=== PATIENT | male | born 2000 | race Hispanic/Latino ===

== ENCOUNTER 2020-08-27 13:45 | Inpatient (IN) | payer OTHER, SELFPAY ==
[2020-08-27] VITALS (26 sets, daily range): BP systolic 110–133; BP diastolic 56–96; PULSE 98–160; RESP 16–35; TEMP 36.6–37.1; O2SAT 98–100
--- NOTE | ~2020-08-27 | CT_ITS ---
EXAMINATION: CT brain wo con EXAM DATE: 08/27/2020 15:00 INDICATION: Seizures. Altered mental status. Metastatic mass. TECHNIQUE: Spiral CT of the head was performed without contrast. Axial, coronal and sagittal images were reviewed. The dose-length product (DLP) for this examination was 605.33 mGy-cm. The exposure w as tailored according to patient size, and iterative reconstruction (ASIR) was used as additional dos e reduction technique. There is no prior study for comparison. FINDINGS: There is no acute intraparenchymal hemorrhage. No evidence of intraparenchymal brain mass lesion. No evidence of acute infarction. There is no mass effect or midline shift. The ventricles are normal in size. There are no extra-axial collections. There are no acute calvarial fractures. T he orbits are unremarkable. Soft tissue is unremarkable. The visualized sinuses and mastoid air deja ls are well aerated. IMPRESSION: 1. Unremarkable head CT examination. Reviewed, dictated and finalized at location A. GAGE FUNDER
--- NOTE | ~2020-08-27 | XR_ITS ---
XR chest 1V portable DATE: 08/27/2020 14:36 INDICATION: Altered mental state TECHNIQUE: Portable supine AP chest COMPARISON: None FINDINGS: Normal heart size. No hilar or mediastinal enlargement. No pulmonary infiltrate or consol idation, pulmonary vascular congestion or pleural effusion or pneumothorax. IMPRESSION: No active cardiopulmonary disease Reviewed, dictated and finalized at location B. RAFT PART ASSEMBLER
--- NOTE | 2020-08-27 13:57 | ED.OVERDOSE ---
HPI - Overdose General Chief Complaint: Seizure Stated Complaint: altered History of Present Illness HPI Narrative: 19 yo male brought in from home for AMS. Found minimally responsive with right gaze deviation and nastagmus this afternoon. Last seen normal last night. Drinking alcohol at that time. He was upset about a recent break-up with his girlfriend. EMS did not note any pills or pill bottles. They did notice that his tongue was pink. History limited by medical condition. Related Data Home Medications Medication Instructions Recorded Confirmed No Home Medications 08/27/20 08/27/20 Allergies Allergy/AdvReac Type Severity Reaction Status Date / Time No Known Allergies Allergy Verified 08/27/20 14:54 Review of Systems Review of Systems: ROS unobtainable: Yes unobtainable due to mental status PMFSH Past Medical History Medical History (Updated 08/28/20 @ 12:36 by Ale Garcia MD) Medical history unknown Surgical History Surgical History (Updated 08/27/20 @ 19:33 by Anabel Garcia NP) Surgical history unknown Family History Family History (Updated 08/27/20 @ 19:33 by Anabel Garcia NP) Unknown Unknown family medical history Social History Social History (Updated 08/27/20 @ 19:34 by Anabel Garcia NP) Social History: it was reported that the patient drink alcohol last night. He lives in a college dorm. He is a full code. He is single no children. Smoking status: Unknown if ever smoked Alcohol intake: never Substance use: never Gender identity (if verbalized by the patient): Male Spiritual care concerns: No Comments no known medical history Exam Const: General: ill appearing Nutritional Appearance: thin Limitations: altered mental status HENMT: Mouth: Yes dry mucous membranes Other: pink staining to MM Eyes: Pupils: Equal, round and reactive pupils present Neck: Neck: normal visual inspection Resp: Effort & Inspection: tachypneic Cardio: Rate: tachycardic Rhythm: regular rhythm GI: GI Palp: Yes Soft to palpation Skin: General skin exam: normal color Neuro: General: moves all extremities Cranial nerves: Yes Nystagmus present horizontal Extrem: General: normal to inspection Course Course Emergency Course: During time in the ED mental status seems to be mildly improving. He continues to be confused and nonverbal with severe nystagmus. Vital Signs Vital signs: Vital Signs Temperature 36.7 C 08/27/20 13:42 Pulse Rate 160 H 08/27/20 13:42 Respiratory Rate 29 H 08/27/20 13:42 Blood Pressure 120/56 L 08/27/20 13:42 Pulse Oximetry 99 08/27/20 13:42 Temperature 36.7 C 08/28/20 11:58 Pulse Rate 86 08/28/20 12:00 Respiratory Rate 18 08/28/20 11:58 Blood Pressure 121/76 08/28/20 11:58 Pulse Oximetry 100 08/28/20 11:58 MDM - Overdose MDM Narrative Medical decision making narrative: I suspect an intentional overdose. Possibly anticholinergic, SSRI, Depakote, or other. Unclear why ammonia is elevated given normal liver labs and negative depakote level. This finding could certainly explain the seizure and AMS. I attempted order carnatine to help clear the ammonia. This does not seem to be on formulary. Medical Records Attestation: I reviewed the patient's medical records. Lab Data Attestation: I reviewed the patient's lab results. Result diagrams: 08/28/20 07:10 08/28/20 07:10 Labs: Lab Results 08/27/20 08/27/20 08/27/20 Range/Units 14:01 14:01 14:01 WBC 9.5 (4.5-10.0) K/mm3 RBC 4.52 L (4.6-6.20) M/mm3 Hgb 13.7 L (14.0-18.0) g/dL Hct 42.1 (42.0-52.0) % MCV 93.1 (80-100) fl MCH 30.3 (26-34) pg MCHC 32.5 (32-36) g/dl RDW 12.4 (11.5-14.5) % Plt Count 176 (150-375) k/mm3 MPV 11.0 H (7.4-10.4) fl Immature Gran % (Auto) 0.3 (0-0.5) % Neut % (Auto) 51.8 (45.5-73.1) % Lymph % (Auto) 41.9 (18.3-44.2) % [place] %
[2020-08-27 14:18] LABS: Basophils Absolute Auto 0.1 K/mm3 (0.0-0.1); Basophils Percent Auto 0.5 % (0.2-1.2); Eosinophils Percent Auto 0.3 % (0-4.4); Hematocrit 42.1 % (42.0-52.0); Hemoglobin 13.7 g/dL (14.0-18.0); Immature Granulocyte Absolute 0.03 K/mm3 (0.00-0.031); Immature Granulocyte Percent A 0.3 % (0-0.5); Lymphocytes Percent Auto 41.9 % (18.3-44.2); Mean Corpuscular HGB Conc 32.5 g/dl (32-36); Mean Corpuscular Hemoglobin 30.3 pg (26-34); Mean Corpuscular Volume 93.1 fl (80-100); Monocytes Absolute Auto 0.5 K/mm3 (0.1-0.6); Monocytes Percent Auto 5.2 % (2.6-8.5); Neutrophils Absolute Auto 4.9 K/mm3 (1.3-6.7); Neutrophils Percent Auto 51.8 % (45.5-73.1); Platelet Count Result 176 k/mm3 (150-375); Red Blood Count 4.52 M/mm3 (4.6-6.20); Red Cell Distribution Width 12.4 % (11.5-14.5); White Blood Count 9.5 K/mm3 (4.5-10.0)
[2020-08-27 14:18] LABS: Alveolar/Arterial O2 Gradient 4.5 mmHg; Fractional Inspired Oxygen 21 %; Oxygen Saturation ABG 98.2 % (95.0-100.0); Oxyhemoglobin 96.5 % THb (90.0-100.0); PCO2 ABG 32.4 mmHg (35.0-45.0); PO2 ABG 106.4 mmHg (80.0-100.0); PO2 FiO2 Ratio Arterial Blood 5.07 %; Total Hemoglobin 12.4 g/dL (12.0-18.0); pH ABG 7.469 (7.350-7.450)
[2020-08-27 14:19] LABS: Device ROOM AIR; Site Drawn LEFT BRACHIAL
[2020-08-27] MEDS: LACTATED RINGERS 2,000 ML 999 ML IV CONT (14:21)
[2020-08-27] MEDS: SODIUM BICARBONATE 8.4% 50 MEQ/50 ML VIAL 100 MEQ IV PUSH (14:21)
[2020-08-27] MEDS: LORazepam INJ (*CRX) 2 MG/ML VIAL 1 MG IV PUSH (14:22)
[2020-08-27 14:30] LABS: Add Urine Microscopic? YES; Amorphous Sediment Urine Few; Appearance Urine Clear (Clear); Bilirubin Urine Negative (Negative); Blood Urine Negative (Negative); Color Urine Yellow (Yellow); Glucose Urine UA Negative (Negative); Ketones Urine Negative (Negative); Leukocyte Esterase Ur Negative LEU/UL (Negative); Mucus Urine Rare /lpf; Nitrate Urine Negative (Negative); Protein Urine 2+ mg/dL (Negative); RBC Urine 0-2 /hpf (0-2); Specific Grav Ur 1.012 (1.001-1.035); Squamous Epithelial Cell Urine Rare /hpf (Few); Urobilinogen Urine Negative mg/dL (<2.0); WBC Urine 0-3 /hpf
[2020-08-27 14:34] LABS: Acetaminophen < 10 ug/mL (10-30); Ammonia 157 umol/L (9-30); Ethanol < 10 mg/dL (<10); Salicylate < 1.0 mg/dL (2-20)
[2020-08-27 14:36] LABS: Amphetamine Screen Urine Negative (Negative); Barbiturate Screen Urine Negative (Negative); Benzodiazepines Screen Urine Negative (Negative); Cannabinoid Screen Urine Negative (Negative); Cocaine Screen Urine Negative (Negative); Methadone Screen Urine Negative (Negative); Opiate Screen Urine Negative (Negative); Phencyclidine Screen Urine Negative (Negative)
[2020-08-27 14:37] LABS: Alkaline Phosphatase 58 U/L (58-237); Anion Gap 21 mmol/L (8-16); Aspartate Amino Transferase 35 U/L (17-59); Bilirubin,Total 0.7 mg/dL (0.2-1.3); Blood Urea Nitrogen 12 mg/dL (8-21); Calcium 8.8 mg/dL (8.9-10.7); Carbon Dioxide 15 mmol/L (22-30); Chloride 103 mmol/L (98-107); Creatine Kinase 71 U/L (55-170); Estimated CRCL calculation 78 ml/min; Estimated Glomerular Filt Rate > 60; Glucose 161 mg/dL (75-110); Potassium 3.1 mmol/L (3.4-5.0); Sodium 139 mmol/L (134-143)
[2020-08-27 14:52] LABS: Lactic Acid Reflex 14.7 mmol/L (0.7-2.1)
[2020-08-27 15:00] LABS: INR 1.3; Partial Thromboplastin Time 24.2 SECONDS (22.3-36.8); Prothrombin Time 16.8 Seconds (11.1-14.7)
[2020-08-27] MEDS: levETIRAcetam 1000MG/NACL100ML 1,000 MG/100 ML BAG 400 MG IVPB (15:24)
[2020-08-27] MEDS: SODIUM CHLORIDE 0.9% IV 1,000 ML 999 ML IV CONT (15:24)
[2020-08-27 15:30] LABS: Alanine Aminotransferase 43 U/L (4-50)
[2020-08-27 16:09] LABS: Valproic Acid < 10.0 ug/mL (50-120)
[2020-08-27 17:15] LABS: Reflex Lactic Acid Yes or No Add Lactic
--- NOTE | 2020-08-27 17:15 | ADMGEN ---
This patient, Stephan Cox, was admitted to Intensive Care Unit-1. Patient/family oriented to hospital policies and general routines including ID bracelet, bed and alarms, visiting hours, pain management, procedures, bathroom and other care routines, personal items, smoking policy, room service/diet, and visiting hours. Information on how to activate the Rapid Response Team has been discussed. Patient/Family are encouraged to report perceived risks to care and to ask questions if they do not understand what they are told or what they should do.
[2020-08-27] MEDS: SODIUM CHLORIDE 0.9% IV 1,000 ML 125 ML IV CONT (17:45)
[2020-08-27 18:47] LABS: Acetaminophen < 10 ug/mL (10-30)
--- NOTE | 2020-08-27 19:21 | PM.IMHP ---
H&P: HPI History of Present Illness Date/Time: 08/27/20 19:21 Chief complaint: Acute encephalopathy/hyperamonemia/suspected toxic Narrative: Stephan Cox is a 19 year old male Was brought in through the ED via EMS. He was brought from his college dorm room. He was minimally responsive with a right gaze deviation and the stagnant is this afternoon. The patient does have a history of having depression but is not on any depression medication. He was seen normal last night. He was socially drinking with other friends last night. He was upset about a recent break-up with his girlfriend. There was no note are no pills are pill bottles found near the patient. The patient had very dry appearing tongue and had shaky hands. He was picking at the air. He had a lateral nystagmus. The patient's tempted to get out of bed in the emergency room and fell in ground. He is not currently on any medications. ER noticed at the patient's tongue was pink as well. His skin tone was normal the patient is and had a normal skin tone of a Descent. Patient's heart rate initially was 160 and came down to 111. The patient was having difficulty following commands but was set up in the bed in the emergency room at times. He was nonverbal what was shaking his head yes or no to some questions. Initially the patient told me that he lives with his parents. However his parents were called and they stated that he lives in a dorm room. His liver enzymes were not elevated but his ammonia level was elevated At 157. He was given IV fluids. Tylenol level was repeated and was negative. Ethyl alcohol was negative. ABGs were Normal. is felt as though the patient may have overdosed on Benadryl. He was given Ativan, lactated Ringer's, sodium bicarb, and Keppra in the emergency room. CT of the brain was negative. I spoke with the cardiac nurse practitioner who also felt that the patient needed lactulose for the high ammonia level. Patient is being admitted inpatient /placed in patient into ICU on the date of service of 08/27/2020. Review of Systems Review of Systems: All systems reviewed & are unremarkable except as noted in HPI and below Constitutional: Constitutional: Reports as per HPI and Reports no additional constitutional complaints Eyes: Eyes: Reports as per HPI and Reports no additional eye complaints ENT: Reports system reviewed and no additional complaints, except as documented and Reports Normal hearing present Cardiovascular: Cardiovascular: Reports no additional cardiovascular complaints Respiratory: Respiratory: Reports no additional respiratory complaints and Reports no additional respiratory complaints Gastrointestinal: Gastrointestinal: Reports as per HPI and Reports no additional gastrointestinal complaints Musculoskeletal: Musculoskeletal: Reports no additional musculoskeletal complaints Integumentary/Breasts: Skin/Breast: Reports system reviewed and no additional complaints, except as docu and Reports as per HPI Neurologic: Reports system reviewed and no additional complaints, except as documented, Reports as per HPI and Reports Normal hearing present Psychiatric: Psychiatric: Reports no additional psychiatric complaints and Reports as per HPI Endocrine: Endocrine: Reports no additional endocrine complaints Hematologic/Lymphatic: Hematologic/Lymphatic: Reports no additional hematologic/lymphatic complaints Allergic/Immunologic: Allergic/Immunologic: Reports no additional allergic/immunologic complaints [facility] Past Medical History Medical History (Updated 08/27/20 @ 20:03 by Anabel Garcia NP) Medical history unknown Surgical History Surgical History (Updated 08/27/20 @ 19:33 by Anabel Garcia NP) Surgical history unknown Family History Family History (Updated 08/27/20 @ 19:33 by Anabel Garcia NP) Unknown Unknown family medical history Social History Social History (Updated 08/27/20 @ 19:34 by Anabel Garcia NP) Soc
[2020-08-27] MEDS: LACTULOSE ENEMA 200 GM/1,000 ML ENEMA RECTAL (20:36)
--- NOTE | 2020-08-27 23:26 | PC.NURSE ---
pt awake and talking movements are somewhat jerky pt able to track who is talking to him nystagmus drastically decreased pt states he took about 40 benadryl to sleep.Pt alert to self report givene to Joselyn paced on telemetry ns at 125 cc/hr
--- NOTE | 2020-08-27 23:30 | PC.NURSE ---
This patient, Stephan Cox, was received from [ ] on 08/27/20 at 2176. Patient/family oriented to unit policies and routines
[2020-08-27 23:49] LABS: Lactic Acid 2.2 mmol/L (0.7-2.1)
[2020-08-27 23:51] LABS: Anion Gap 11 mmol/L (8-16); Blood Urea Nitrogen 5 mg/dL (8-21); Calcium 9.2 mg/dL (8.9-10.7); Carbon Dioxide 24 mmol/L (22-30); Chloride 106 mmol/L (98-107); Estimated CRCL calculation 86 ml/min; Estimated Glomerular Filt Rate > 60; Glucose 100 mg/dL (75-110); Potassium 3.6 mmol/L (3.4-5.0); Sodium 141 mmol/L (134-143)
[2020-08-28] VITALS (12 sets, daily range): BP systolic 105–125; BP diastolic 53–77; PULSE 83–103; RESP 16–20; TEMP 36.2–37.1; O2SAT 99–100; BMI 16.5
[2020-08-28] MEDS: SODIUM CHLORIDE 0.9% IV 1,000 ML 125 ML IV CONT ×2 (01:45→18:39)
[2020-08-28 07:23] LABS: Basophils Percent Auto 0.3 % (0.2-1.2); Eosinophils Percent Auto 0.1 % (0-4.4); Hematocrit 37.7 % (42.0-52.0); Hemoglobin 13.2 g/dL (14.0-18.0); Immature Granulocyte Absolute 0.04 K/mm3 (0.00-0.031); Immature Granulocyte Percent A 0.4 % (0-0.5); Lymphocytes Absolute Auto 0.94 K/mm3 (0.9-3.2); Mean Corpuscular Hemoglobin 30.7 pg (26-34); Mean Corpuscular Volume 87.7 fl (80-100); Mean Platelet Volume 11.4 fl (7.4-10.4); Monocytes Absolute Auto 0.6 K/mm3 (0.1-0.6); Monocytes Percent Auto 5.7 % (2.6-8.5); Neutrophils Absolute Auto 8.9 K/mm3 (1.3-6.7); Neutrophils Percent Auto 84.5 % (45.5-73.1); Platelet Count Result 147 k/mm3 (150-375); Red Cell Distribution Width 12.8 % (11.5-14.5); White Blood Count 10.5 K/mm3 (4.5-10.0)
[2020-08-28 07:44] LABS: Ammonia 12 umol/L (9-30)
[2020-08-28 07:49] LABS: Alanine Aminotransferase 39 U/L (4-50); Albumin Level 3.8 g/dL (3.7-5.6); Alkaline Phosphatase 61 U/L (58-237); Anion Gap 8 mmol/L (8-16); Aspartate Amino Transferase 64 U/L (17-59); Bilirubin,Total 1.4 mg/dL (0.2-1.3); Blood Urea Nitrogen 4 mg/dL (8-21); Calcium 8.9 mg/dL (8.9-10.7); Carbon Dioxide 26 mmol/L (22-30); Chloride 107 mmol/L (98-107); Estimated CRCL calculation 82 ml/min; Estimated Glomerular Filt Rate > 60; Glucose 102 mg/dL (75-110); Potassium 3.4 mmol/L (3.4-5.0); Sodium 141 mmol/L (134-143)
[2020-08-28 07:51] LABS: Magnesium 1.8 mg/dL (1.6-2.3); Phosphorus 4.4 mg/dL (2.5-4.5)
--- NOTE | 2020-08-28 12:19 | PC.NURSE ---
1100- Dr. Garcia downgraded to IMU status and Dr Garcia changed status to med/ tele- continue suicide precautions at this time
--- NOTE | 2020-08-28 12:30 | WPDCNINT ---
Assessment and Plan Assessment and plan (1) Overdose: Qualifiers: Encounter type: initial encounter Injury intent: undetermined intent Qualified Code(s): T50.904A - Poisoning by unspecified drugs, medicaments and biological substances, undetermined, initial encounter Code(s): T50.901A - Poisoning by unspecified drugs, medicaments and biological substances, accidental (unintentional), initial encounter Status: Acute Assessment and Plan: patient stated that he took 60 pills of Benadryl, - patient has been on IV fluids, received bicarb. - tox screen was negative - Tylenol, salicylate and alcohol levels were normal (2) Hyperammonemia: Code(s): E72.20 - Disorder of urea cycle metabolism, unspecified Status: Acute Assessment and Plan: hyperammonemia, given lactulose, ammonia levels this morning is 12 in normal, will continue to monitor (3) Encephalopathy: Code(s): G93.40 - Encephalopathy, unspecified Status: Acute Assessment and Plan: resolved likely related to overdose on Benadryl pills - hemodynamically stable - patient is medically stable to be evaluated by crisis management and care coordination (4) Hypokalemia: Code(s): E87.6 - Hypokalemia Status: Acute Assessment and Plan: will replace potassium Additional Plan discussed with patient updated with his condition and plan of care. He is aware that crisis management care coordination be evaluating code status: Full code critical care time spent: 39 minutes disposition: patient medically stable from ICU standpoint to be transferred to medical status Due to a high probability of clinically significant, life threatening deterioration, the patient required my highest level of preparedness to intervene emergently and I personally spent this critical care time directly and personally managing the patient. This critical care time included obtaining a history; examining the patient; pulse oximetry; ordering and review of studies; arranging urgent treatment with development of a management plan; evaluation of patient's response to treatment; frequent reassessment; and discussions with other providers. It was exclusive of separately billable procedures and treating other patients and teaching time. Please see Assessment and Plan section and the rest of the note for further information on patient assessment and treatment Event Management Consultant Consult Note Consult date: 08/28/20 Time Seen: 07:19 Reason for consult: encephalopathy, hyperammonemia, overdose HPI: Stephan Cox is a 19 year old male with no known past medical history presented the ED on 08/27/2020 with complains of acute encephalopathy, hyperammonemia, overdose. Patient was brought from his college dorm room family responsive. Had a history of depression, recently break-up with his girlfriend. Patient has some lateral nystagmus on admission as well as some hallucinations. Patient was given IV fluids, lactulose for ammonia level of 157. Patient this morning did stated that he took 60 pills of Benadryl. Stated he is not suicidal or homicidal. Patient is awake, alert, oriented x3. Patient is not hungry, urine output has been adequate and hemodynamically stable. Patient denies any shortness of breath, abdominal pain, nausea, vomiting at this time Review of Systems Review of Systems: All systems reviewed & are unremarkable except as noted in HPI and below PMFSH Past Medical History Medical History (Updated 08/28/20 @ 12:36 by Ale Garcia MD) Medical history unknown Surgical History Surgical History (Updated 08/27/20 @ 19:33 by Anabel Garcia NP) Surgical history unknown Family History Family History (Updated 08/27/20 @ 19:33 by Anabel Garcia NP) Unknown Unknown family medical history Social History Social History (Updated 08/27/20 @ 19:34 by Anabel Garcia NP) Social History: it was reported that the
--- NOTE | 2020-08-28 13:40 | PM.IMPN ---
Progress Note: A&P Assessment and Plan (1) Overdose: Qualifiers: Encounter type: initial encounter Injury intent: undetermined intent Qualified Code(s): T50.904A - Poisoning by unspecified drugs, medicaments and biological substances, undetermined, initial encounter Code(s): T50.901A - Poisoning by unspecified drugs, medicaments and biological substances, accidental (unintentional), initial encounter Status: Acute Assessment and Plan: Overdose of unknown substance. Thought to be Benadryl. Patient has nystagmus. Continue with IV fluids. The patient was admitted to ICU. Repeat Tylenol levels were negative. Toxicology was negative. Continue to watch pt is acutely confused. Consult Neurology order b12 and tsh and ammonia. (2) Hyperammonemia: Code(s): E72.20 - Disorder of urea cycle metabolism, unspecified Status: Acute Assessment and Plan: Patient was given lactulose. Continue with IV fluids. (3) Epileptic seizure: Code(s): G40.909 - Epilepsy, unspecified, not intractable, without status epilepticus Status: Acute Assessment and Plan: He has no history of having any seizures continue to monitor. (4) Hypokalemia: Code(s): E87.6 - Hypokalemia Status: Acute Assessment and Plan: supplement as needed. Patient was supplemented in the emergency room. (5) Lactic acidosis: Code(s): E87.2 - Acidosis Status: Acute Assessment and Plan: continue with IV fluids and recheck lactic. Subjective Date/time seen: 08/28/20 13:40 Interval history: Stephan Cox is a 19 year old male, pt is very confused. Pt looks depressed. Pt took benadryl 40. Tylenol level was repeated and was negative. Ethyl alcohol was negative.Pt states he is in [place] in [facility]. Unsure cause of confusion. ? seizures ? se of benadryl? psychosis or depression.Pt still appears tired. Review of Systems Review of Systems: All systems reviewed & are unremarkable except as noted in HPI and below Exam Const: General: healthy appearing, comfortable, no acute distress, well developed, awake and Physically active Nutritional Appearance: average body habitus and well nourished Orientation/consciousness: oriented to person Limitations: altered mental status Chest: Chest palpation & inspection: normal inspection of the chest Resp: Effort & Inspection: normal respiratory effort Auscultation: clear to auscultation bilaterally Percussion: percussion normal Cardio: Palpation: normal PMI Rate: regular rate Rhythm: regular rhythm Heart sounds: S1 normal heart sound present and S2 normal heart sound present Peripheral pulses: Peripheral pulses 2+ throughout GI: Inspection: normal to inspection Auscultation: normal bowel sounds Rectal Exam: deferred : General: Yes no CVA tenderness Back/Spine/Pelvis: Back: no CVA tenderness Cervical Spine: cervical ROM normal Thoracic/Lumbar Spine: thoracic and lumbar spine normal to inspection Pelvis: no pain with anterior-posterior compression Skin: General skin exam: normal color Lesions: no lesions Rashes: no rashes Trauma: no lacerations or abrasions Wounds: no wounds Hair: normal Nails: normal Neuro: General: oriented to person Cranial nerves: Yes Normal hearing present and Yes Nystagmus present rotary and within normal field of vision Cognition (Neuro): abnormal cognition Speech: aphasia Gait exam (Neuro): Normal gait present Motor exam (neuro): 5/5 motor strength present throughout Sensory Exam: normal sensation Extrem: General: normal to inspection Right upper extremity: normal to inspection and Extremity exam: right hand (ray tremors) Left upper extremity: normal to inspection Right lower extremity: normal to inspection Left lower extremity: normal to inspection Psych: Appearance: grossly normal Speech and movement: Slowed speech present (Psych) and Slowed movement present (Neuro)
[2020-08-28] MEDS: POTASSIUM CHLORIDE 20 MEQ TABLET 40 MEQ PO (14:23)
[2020-08-28 14:45] LABS: Ammonia < 9 umol/L (9-30); Lactic Acid Reflex 0.7 mmol/L (0.7-2.1)
[2020-08-28 15:53] LABS: Folic Acid 10.9 ng/mL (2.76->20)
[2020-08-29] VITALS (9 sets, daily range): BP systolic 114–130; BP diastolic 56–69; PULSE 60–86; RESP 14–18; TEMP 36.1–37.1; O2SAT 91–100
[2020-08-29] MEDS: SODIUM CHLORIDE 0.9% IV 1,000 ML 125 ML IV CONT ×2 (02:52→11:23)
--- NOTE | 2020-08-29 11:50 | WPDNEURCNPN ---
Assessment and Plan Assessment and plan (1) Encephalopathy: Code(s): G93.40 - Encephalopathy, unspecified Status: Acute (2) Overdose: Qualifiers: Encounter type: initial encounter Injury intent: undetermined intent Qualified Code(s): T50.904A - Poisoning by unspecified drugs, medicaments and biological substances, undetermined, initial encounter Code(s): T50.901A - Poisoning by unspecified drugs, medicaments and biological substances, accidental (unintentional), initial encounter Status: Acute Additional Plan overdose with nonfocal neurological examination will continue the supportive care at present right now we can obtain the EEG later on if necessary Consult date: 08/29/20 Time Seen: 11:30 HPI: Stephan Cox is a 19 year old male 19 years old right-handed male has been admitted to [facility] through the emergency room in minimally responsive condition, right gaze deviation in addition to history of depression. reportedly he was upset about recent break-up with girlfriend. he was upset no note or bottle near him, had very dry appearing tongue and shaky hands, picking up at the air, with obvious lateral nystagmus, he tried to get out of the bed in the emergency room and fell he was noted to be in tachycardia ,he was having difficulty in following the verbal commands but was shaking his head yes or no to some questions, he received IV fluids, Shannon alcohol was negative, ABGs were normal, question raised as regarding the possibility of overdose on Benadryl or Ativan, he was given normal saline with potassium supplement most recent CBC revealed WBC 10.5 hemoglobin 13.2 platelet count 147, normal BMP, serum ammonia level initially 12 repeat less than 9 and Tylenol level was less than [address] negative Review of Systems Review of Systems: All systems reviewed & are unremarkable except as noted in HPI and below PMFSH Past Medical History Medical History Medical history unknown Surgical History Surgical History Surgical history unknown Family History Family History Unknown Unknown family medical history Social History Social History Social History: it was reported that the patient drink alcohol last night. He lives in a college dorm. He is a full code. He is single no children. Smoking status: Unknown if ever smoked Alcohol intake: never Substance use: never Gender identity (if verbalized by the patient): Male Spiritual care concerns: No Meds Home Medications and Allergies Home Medications Medication Instructions Recorded Confirmed Type No Home Medications 08/27/20 08/27/20 History Allergies Allergy/AdvReac Type Severity Reaction Status Date / Time No Known Allergies Allergy Verified 08/27/20 14:54 Vital Signs Vital Signs - 24 hr 08/28/20 11:58 08/28/20 12:00 08/28/20 16:00 Temperature 36.7 C Pulse Rate 100 86 85 Respiratory Rate 18 Blood Pressure 121/76 Pulse Oximetry 100 08/28/20 19:51 08/28/20 20:00 08/28/20 23:44 Temperature 36.2 C L 36.2 C L Pulse Rate 94 83 84 Respiratory Rate 16 16 Blood Pressure 114/62 105/53 L Pulse Oximetry 100 99 08/29/20 00:00 08/29/20 04:00 08/29/20 06:34 Temperature 36.1 C L Pulse Rate 73 69 60 Respiratory Rate 16 Blood Pressure 118/69 Pulse Oximetry 91 08/29/20 07:29 08/29/20 08:00 Temperature 36.5 C Pulse Rate 64 67 Respiratory Rate 14 Blood Pressure 122/56 L Pulse Oximetry 100 Exam Narrative: Exam Narrative: examination revealed head normocephalic with no cranial bruit ear nose throat examination normal neck supple with no cervical bruit no thyromegaly no lymphadenopathy heart regular, lungs clear ,abdomen soft neurologically awake alert, pupils round regular,
--- NOTE | 2020-08-29 13:52 | PC.NURSE ---
Contacted [facility] to notify them of Patient's admission, what he ingested, tests performed, lab results, and current medical status. Brittney from [employer] closed out his his case at end of phone call. Case #[id number] was provided for any future comments or questions.
--- NOTE | 2020-08-29 15:05 | PC.NURSE ---
COVID swab ordered for transfer to outside facility.
--- NOTE | 2020-08-29 17:34 | PM.TDS ---
Transfer Discharge Sum: Prov Provider Date of admission: 08/27/20 15:09 Primary care physician: MACHINE OPERATOR PICKER PHYSICIAN Admitting clinician: Ebony Garcia MD Consults: 08/27/20 Care Coordination Consult Routine Comment: when the patient is more alert. Reason for Consult:: Crisis Intervention Consult to Physician Routine Comment: Consulting Provider: Loc Cifuentes Reason for consultation: suspected toxic ingestion, hyperammonemia Has provider been notified: Yes 08/28/20 Consult to Physician Routine Comment: NOTIFIED MD Consulting Provider: Uriel Merino banquet server on call/MD group to consult: NEUROLOGY Reason for consultation: ACUTE CONFUSION Has provider been notified: Yes DS: Admitting Diagnosis Admitting Diagnosis Admitting Diagnosis: Acute encephalopathy/hyperamonemia/suspected toxic DS: Discharge Diagnosis Discharge Diagnosis (1) Overdose: Qualifiers: Encounter type: initial encounter Injury intent: undetermined intent Qualified Code(s): T50.904A - Poisoning by unspecified drugs, medicaments and biological substances, undetermined, initial encounter Code(s): T50.901A - Poisoning by unspecified drugs, medicaments and biological substances, accidental (unintentional), initial encounter Status: Acute Assessment and Plan: Overdose of unknown substance. Thought to be Benadryl. Patient has nystagmus. Continue with IV fluids. Pt was intially very confused Repeat Tylenol levels were negative. Toxicology was negative. Neurology consulted, b12 and tsh and ammonia and COVID ordered. (2) Hyperammonemia: Code(s): E72.20 - Disorder of urea cycle metabolism, unspecified Status: Resolved Assessment and Plan: Patient was given lactulose and fluids. (3) Epileptic seizure: Code(s): G40.909 - Epilepsy, unspecified, not intractable, without status epilepticus Status: Acute Assessment and Plan: He has no history of having any seizures. Likely secondary to medications. (4) Hypokalemia: Code(s): E87.6 - Hypokalemia Status: Acute Assessment and Plan: Patient was supplemented in the emergency room. (5) Lactic acidosis: Code(s): E87.2 - Acidosis Status: Resolved Assessment and Plan: Continue with IV fluids, lactate NL on discharge Transfer Discharge Sum: Med Medications Active and Home Medications: Home Medications No Home Medications 08/27/20 [History Confirmed 11/19/20] Active Medications Sodium Chloride (Normal Saline Iv) 1,000 mls @ 125 mls/hr IV CONT .Q8H [facility] Last Admin: 08/29/20 11:23 Dose: 125 mls/hr Documented by: Transfer Discharge Sum: Hosp Hospital Course Hospital course: Stephan Cox is a 19 year old male, pt is very confused. Pt looks depressed. Pt took benadryl 40. Tylenol level was repeated and was negative. Ethyl alcohol was negative.Pt states he is in [place] in [facility]. Confusion resolved the next day. Unsure cause of confusion. se of benadryl? psychosis or depression. Pt still appears tired.Neurology consulted, b12 and tsh and ammonia and COVID ordered. Time Spent with Patient Time attestation: Total time spent providing and/or coordinating transfer services:40 minutes on day of dischrage Exam Const: General: well developed Nutritional Appearance: well nourished HENMT: Head: normocephalic Eyes: General: appearance normal, both eyes and all related structures Pupils: Equal, round and reactive pupils present Neck: Neck: supple Chest: Chest palpation & inspection: normal inspection of the chest Resp: Effort & Inspection: normal respiratory effort Auscultation: clear to auscultation bilaterally Cardio: Jugular venous distension: no JVD Rhythm: regular rhythm Heart sounds: S1 normal heart sound present and S2 normal heart sound present GI: Inspection: normal to inspection GI Palp: No abdominal tenderness, Yes Soft to palpation and
--- NOTE | 2020-08-29 18:58 | PC.NURSE ---
Report given to Paris JOHNSON at [facility] at [id number]. Patient will go to Room 413 A with being the accepting physician.
[2020-08-30 22:24] LABS: SARS-CoV-2 RNA PCR Negative
== END 2020-08-29 21:46 | DRG 812 ==
LOC: ANHED 14:21 → ANHICU 16:35 → ANHIMU 23:19
PROVIDERS: Nurse Practitioner; Admitting Provider Family Medicine; Emergency Provider Emergency Medicine; Visit Provider Family Medicine
DX: T45.0X2A Poisoning by antiallergic and antiemetic drugs, intentional self-harm, initial encounter (principal); G40.909 Epilepsy, unspecified, not intractable, without status epilepticus; E72.20 Disorder of urea cycle metabolism, unspecified; G92 Toxic encephalopathy; E87.6 Hypokalemia; E87.2 Acidosis; Z20.828 Contact with and (suspected) exposure to other viral communicable diseases
CPT/HCPCS: 36415; 36600; 51701; 70450; 71045; 80048; 80053; 80164; 80307; 81001; 82140; 82550; 82607; 82746; 82805; 83605; 83735; 84100; 84443; 85025; 85610; 85730; 87040; 87635; 96361; 96365; 96375; 99285; A9270; C9803; J1953; J2060; J3480; J7030; J7120; U0003